=== PATIENT | male | born 2000 | race American Indian/Alaskan Native ===

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

== ENCOUNTER 2021-08-22 22:05 | Emergency (ER) | payer MEDICAID ==
--- NOTE | 2021-08-22 22:48 | Emergency Department Report ---
ED CPR HPI - General Chief Complaint: Cardiac Arrest/CPR Stated Complaint: CARDIAC ARREST Time Seen by Provider: 08/22/21 22:41 Source: EMS Mode of arrival: Stretcher Limitations: Altered Mental Status - History of Present Illness Initial Comments: Patient is a 20-year-old male brought in by EMS for cardiac arrest. He has history of autism and seizures. He was found by his father unresponsive after he had just left his room. CPR started at that time. EMS was called and continued ACLS. Patient received 2 epis in route. Last epi was given at aditi roximately 9:45 PM. Initial rhythm was asystole with no rhythm change up to arrival. MD Complaint: found unresponsive - Related Data Home Medications Medication Instructions Recorded Confirmed Last Taken Depakote 125 mg PO DAILY 06/23/17 06/23/17 Unknown Dilantin 50 mg PO DAILY 06/23/17 06/23/17 Unknown Previous Rx's Medication Instructions Recorded Last Taken Type HYDROcodone/Acetaminop 7.5-325 7.5 mg PO Q6HR PRN #150 oral.liqd 12/14/13 Unknown Rx [[place]] Ibuprofen [Motrin] 600 mg PO Q8H PRN #30 tablet 12/14/13 Unknown Rx Allergies Allergy/AdvReac Type Severity Reaction Status Date / Time No Known Allergies Allergy Verified 06/23/17 15:18 ED Review of Systems ROS: Stated complaint: CARDIAC ARREST Other details as noted in HPI Comment: Unobtainable due to pts medical conditions ED Past Medical Hx - Past Medical History Hx Seizures: Yes Additional medical history: autism, seizure - Social History Smoking Status: Never Smoker Substance Use Type: None - Medications Home Medications: Home Medications Medication Instructions Recorded Confirmed Last Taken Type HYDROcodone/Acetaminop 7.5-325 7.5 mg PO Q6HR PRN #150 oral.liqd 12/14/13 06/23/17 Unknown Rx [[place]] Ibuprofen [Motrin] 600 mg PO Q8H PRN #30 tablet 12/14/13 06/23/17 Unknown Rx Depakote 125 mg PO DAILY 06/23/17 06/23/17 Unknown History Dilantin 50 mg PO DAILY 06/23/17 06/23/17 Unknown History ED Physical Exam - General General appearance: other (Unresponsive) - Head Head exam: Present: atraumatic, normocephalic - Eye Pupils: Present: other (Pupils 6) - ENT ENT exam: Present: other (Advanced airway in place) - Respiratory Respiratory exam: Present: other (No spontaneous respirations. Patient being bagged) - Cardiovascular Cardiovascular Exam: Present: other (No spontaneous pulse. No heart sounds on auscultation. Compressions in progress) - GI/Abdominal GI/Abdominal exam: Present: soft. Absent: distended - Neurological Exam Neurological exam: Present: other (GCS 3) - Skin Skin exam: Present: warm, dry, intact ED Medical Decision Making - Medical Decision Making ACLS continued in the ED. Patient arrived in asystole without change in rhythm. Unable to obtain ROSC after a total of roughly 45 minutes including time with EMS. Decision was made to discontinue further resuscitative efforts. Patient at 22:15. Critical care attestation.: If time is entered above; I have spent that time in minutes in the direct care of this critically ill patient, excluding procedure time. ED Disposition Clinical Impression: Cardiopulmonary arrest Disposition: 20 Is pt being admited?: No Condition: Stable
== END 2021-08-23 02:00 ==
LOC: ED 22:05
DX: I46.9 Cardiac arrest, cause unspecified (principal); R56.9 Unspecified convulsions
CPT/HCPCS: 92950; 99285